=== PATIENT | male | born 1960 | race Hispanic/Latino ===

== ENCOUNTER → 2018-08-01 | Day surgery (SDC) | payer BC ==
[~2018-08-01] MED LIST: ALLOPURINOL100 MG PO; ATORVASTATIN CA10 MG PO; ATORVASTATIN CA40 MG PO; BENAZEPRIL HCL5 MG PO; FENTANYL CITRATE/PF 100MCG/2 ML INJ ONE; GABAPENTIN300 MG PO; GLIPIZIDE5 MG PO; HYOSCYAMINE SULFATE 0.5 MG/ML INJ ONE; LIDOCAINE HCL 2% LOCAL INJ 5 ML SDV VIAL INJ ONE; LOTREL 10-20 M1 EACH PO; LOTREL 5-10 MG1 EACH PO; METFORMIN HCL500 MG PO; MIDAZOLAM HCL 2 MG/2 ML VIAL ONE; MULTIVITAMIN; PROPOFOL IV EMULSION 10 MG/ML 50 ML VIAL ONE; SIMVASTATIN40 MG PO
--- OUTSIDE RECORDS SUMMARY | 2018-08-01 09:57 | XMS REPORT | Clinical Summary ---
Author Author [facility] Organization [facility] Address Unknown Phone Unavailable Care Team Providers Care Velocity Shooter Name Role Phone Kris Short MD PCP Allergies No Known Allergies Medications End Date Status Medication Sig Dispensed Refills Start Date Active gabapentin (NEURONTIN) 2 (two) times 0 300 mg capsule a day. 7 Active amlodipine-benazepril Take 1 0 (LOTREL) 10-20 mg per capsule by 7 capsule mouth daily. Active glipiZIDE (GLUCOTROL) 10 2 (two) times 0 MG tablet a day. 7 Active cyanocobalamin 1000 MCG Take 1,000 0 tablet mcg by mouth daily. Active aspirin (ECOTRIN) 81 MG Take 81 mg by 0 enteric coated tablet mouth daily. Active fluticasone (FLONASE) 50 2 sprays (100 15.8 mL 0 mcg/actuation nasal spray mcg total) by 7 Each Nare route daily. 05/30/2018 montelukast (SINGULAIR) Take 1 tablet 90 tablet 3 10 mg tablet (10 mg total) 7 by mouth nightly. 09/07/2017 fenofibrate 150 mg Take 150 mg 90 each 0 capsule by mouth 7 daily for 90 days. 06/09/2018 metFORMIN (GLUCOPHAGE) Take 1 tablet 30 tablet 11 1,000 mg tablet (1,000 mg 7 total) by mouth daily with breakfast. Active Problems Problem Noted Date Diabetes mellitus 05/30/2017 Hyperlipidemia 03/25/2017 Family History Relation Name Status Comments Father Alive Mother Social History Date Tobacco Use Types Packs/Day Years Used Never Smoker Smokeless Tobacco: Never Used Alcohol Use Drinks/Week oz/Week Comments No Sex Assigned at Date Recorded Not on file Industry Job Start Date Occupation Not on file Not on file Not on file Travel End Travel History Travel Start No recent travel history available. Last Filed Vital Signs Not on file Plan of Treatment Health Maintenance Due Date Last Done Comments DIABETIC RETINAL EYE EXAM 1958 DIABETIC FOOT EXAM 1968 URINE MICROALBUMIN 1968 COLON CANCER SCREENING 2008 SHINGLES VACCINES (1 of 2008 2) INFLUENZA VACCINE 01/29/2018 Results Not on fileafter 07/31/2017 Insurance Payer Benefit Subscriber ID Type Phone Address Plan / Group BCBS BCBS xxxxxxxxxxxx PPO CHOICE PPO/CARLI SMITH PPO Advance Directives Patient has advance care planning documents on file. For more information, [facility] [place] contact: Ronny Snow [address] [place] [address]
[2018-08-01 12:55] VITALS: BP 109/81
--- NOTE | 2018-08-01 14:22 | Operative Report ---
DATE OF PROCEDURE: August 01, 2018 REFERRING PHYSICIAN: Dr. Kamar Myers. PROCEDURE PERFORMED: Colonoscopy. INDICATIONS FOR PROCEDURE: Colorectal cancer screening. MEDICATION: Patient was done under MAC. Please see anesthesiologist's note. PROCEDURE: With the patient in the left lateral decubitus position, the flexible fiberoptic Olympus colonoscope was inserted into the rectum with ease and advanced all the way to the cecum. It was then withdrawn slowly. Mucosa overlying the cecum, ascending colon and transverse colon grossly appeared to be within normal limits. Some minimal diverticular disease was noted in the sigmoid colon. The rectum appeared to be within normal limits. The scope was then retroflexed into the distal rectum and small internal hemorrhoids were noted, none of which was actively bleeding. The scope was then straightened out. It was subsequently withdrawn. Patient tolerated procedure well. IMPRESSION: 1. Diverticulosis. 2. Internal hemorrhoids, none actively bleeding. PLAN: Initiate high-fiber low-fat diet. Initiate high-fiber supplement. Patient might benefit from a followup colonoscopy in 5 to 10 years. Job#: [id number] EV cc:KAMAR MYERS M.D.
== END | disposition home or self-care (01) ==
LOC: ENDO 09:54
PROVIDERS: ATTEND Internal Medicine Gastroenterology
DX: K57.30 Diverticulosis of large intestine without perforation or abscess without bleeding (principal); K59.09 Other constipation; K64.8 Other hemorrhoids; I10 Essential (primary) hypertension; E11.9 Type 2 diabetes mellitus without complications; Z01.810 Encounter for preprocedural cardiovascular examination; Z79.84 Long term (current) use of oral hypoglycemic drugs; Z68.33 Body mass index [BMI] 33.0-33.9, adult
CPT/HCPCS: 36415; 45378; 82948; 93005; J1980; J2001; J2250; J2704